=== PATIENT | female | born 1940 | race Caucasian/White ===

== ENCOUNTER 2025-06-02 14:35 | Emergency (ER) | payer MEDICARE, SELFPAY ==
[2025-06-02 14:36] VITALS: BP 155/53; PULSE 44; RESP 20; TEMP 36.6; O2SAT 98
--- NOTE | 2025-06-02 15:20 | CT_ITS ---
PROCEDURE: BRAIN/HEAD WITHOUT CONTRAST 06/02/2025 REASON FOR EXAM: FALL, ELIQUIS TECHNIQUE: Procedure Code: CTBR Modality: CT Procedure: BRAIN/HEAD WITHOUT CONTRAST Coronal and Sagittal reconstruction series were provided. One or more dose reduction techniques were used (e.g., Automated exposure control, adjustment of the mA and/or kV according to patient size, use of iterative reconstruction technique. RADIATION DOSE SUMMARY: CTDlvol: 47.06 mGy DLP: 890.33 mGycm COMPARISON: None FINDINGS: Brain: Low density in the periventricular white matter suggests mild chronic small vessel ischemic changes. CSF Spaces: Mild generalized cerebral atrophy Sinuses/Mastoids: Clear at visualized levels Bones: Unremarkable CT/Brain/Head without Contrast IMPRESSION: CHRONIC CHANGES. NO ACUTE FINDINGS. Reading Location: [id number]
[2025-06-02 15:36] VITALS: BP 146/62; PULSE 51; RESP 16; O2SAT 99
--- NOTE | 2025-06-02 15:54 | ED.VIS.FALL ---
HPI HPI - Fall History of Present Illness Chief Complaint: Fall Narrative Narrative: Chief complaint and HPI: 84-year-old female with past medical history of atrial fibrillation on Eliquis presents for evaluation of closed head injury after fall. Patient states she was at a fair when she went to sit down on her seated walker. She states the walker collapsed which caused her to fall backwards and hit her head. No LOC. No laceration. She was able to ambulate after the incident. She denies any headache, neck pain, confusion, dizziness, shortness of breath, chest pain, abdominal pain, extremity or back pain. Denies any numbness or tingling. Review of systems: See HPI Medications: As listed on the chart Allergies: As listed on the chart PFSH: Per chart Vital signs: As listed on the chart. Reviewed. Physical exam: Gen: A&O x3, NAD Head: Normocephalic, atraumatic Eyes: No sclera icterus, conjunctiva clear, PERRL, EOMI ENT: TMs clear BL, moist mucous membranes, no swelling/lacerations/blood in the mouth or the nares, No nasal septal hematoma, no facial tenderness Neck: Trachea midline, No JVD, Nontender, full range of motion CV: RRR, no murmurs, no chest wall TTP Resp: Lungs CTA BL, no w/r/c GI: Abd soft, non-distended, non-tender, no r/r/g Musc: Full ROM, no deformity, no spinal TTP, no dana step-offs, DP/PT pulses +2 bilaterally Skin: Warm, dry, intact Neuro: Alert, oriented, grossly intact, sensation intact, GCS 15 Psych: Cooperative, appropriate mood and affect [facility] Allergy/AdvReac Type Severity Reaction Status Date / Time Sulfa (Sulfonamide AdvReac Mild UNKNOWN Verified 06/02/25 14:39 Antibiotics) sulfamethoxazole (From AdvReac Mild UNKNOWN Verified 06/02/25 14:39 Bactrim) trimethoprim (From Bactrim) AdvReac Mild UNKNOWN Verified 06/02/25 14:39 Social History Smoking Status: Never smoker EXAM Physical Exam Const Vital Signs: 06/02/25 14:36 06/02/25 15:36 Temperature 97.8 F Temperature Source Oral Pulse Rate 44 L Respiratory Rate 20 H Respiratory Effort Normal Non-Labored Respiratory Depth Normal Respiratory Pattern Normal Blood Pressure 155/53 H Blood Pressure Mean 87 Pulse Ox 98 Oxygen Delivery Method Room Air MDM MDM MDM Narrative Medical decision making narrative: 84-year-old female with past medical history of atrial fibrillation on Eliquis presents for evaluation of closed head injury after fall. Patient states she was at a fair when she went to sit down on her seated walker. She states the walker collapsed which caused her to fall backwards and hit her head. No LOC. No laceration. She was able to ambulate after the incident. She denies any complaints at this time. Patient had CT head performed in triage per protocol. Imaging was completed by the time I saw the patient. I do agree with the order that was ordered. CT head without any acute intracranial abnormality or traumatic injury. Chronic changes. Physical exam is unremarkable. Patient ambulated our emergency department without difficulty. I do not think any further imaging or laboratory workup is needed. Patient stable to discharge home. Follow-up with PCP. Return precautions explained. She confirmed understand the plan. Patient stable to discharge home. Impression: 1. Closed head injury 2. Mechanical fall Radiography Diagnostic Testing: Clinical Impression(s) from Imaging Studies Brain CT 06/02/25 15:20 IMPRESSION: CHRONIC CHANGES. NO ACUTE FINDINGS. Reading Location: [id number] Discharge Plan Triage Chief Complaint: Fall ED Provider: Juan M Brock Dx/Rx/DC Orders Print Language: [place]
[2025-06-02 16:27] VITALS: BP 139/61; PULSE 86; RESP 16; TEMP 36.4; O2SAT 100
== END 2025-06-02 16:28 | disposition home or self-care (01) ==
LOC: ED 16:08
PROVIDERS: Emergency Provider Surgery; Visit Provider Surgery
DX: S09.90XA Unspecified injury of head, initial encounter (principal); Z79.01 Long term (current) use of anticoagulants; Y92.831 Amusement park as the place of occurrence of the external cause; V00.181A Fall from other rolling-type pedestrian conveyance, initial encounter
CPT/HCPCS: 70450; 99282